=== PATIENT | male | born 1965 | race Hispanic/Latino ===

== ENCOUNTER 2022-09-18 20:54 | Emergency (ER) | payer OTHER ==
[~2022-09-18] VITALS: Ht 167.6 cm; Wt 74.0 kg
[2022-09-18] MEDS ORDERED: FLOMAX0.4 MG PO (23:28)
[2022-09-18 23:50] VITALS: BP 126/72
== END 2022-09-18 23:51 | disposition home or self-care (01) ==
LOC: ED 20:54
DX: N13.2 Hydronephrosis with renal and ureteral calculous obstruction (principal)
CPT/HCPCS: 36415; 74177; 80053; 81001; 83690; 85025; 96375; 99284-25; A9270; J1885; J2270; J2405; J7121; Q9967